=== PATIENT | female | born 1990 | race Caucasian/White ===

== ENCOUNTER 2022-03-14 18:11 | Emergency (ER) | payer OTHER ==
[2022-03-14 18:39] VITALS: RESP 18
[2022-03-14] MEDS ORDERED: SODIUM CHLORIDE 0.9% 1,000 ML IV STA (18:56)
[2022-03-14] MEDS ORDERED: KETOROLAC 15 MG/ML 1 ML VIAL IVP STA (18:56)
[2022-03-14] MEDS ORDERED: PANTOPRAZOLE 40 MG/10 ML VIAL IVP STA (18:56)
--- NOTE | 2022-03-14 18:59 | ED ---
General Adult HPI - General Chief complaint: Abdominal Pain Stated complaint: pain all over Time Seen by Provider: 03/14/22 18:50 Source: patient, RN notes reviewed, old records reviewed Mode of arrival: ambulatory Limitations: no limitations - History of Present Illness Initial comments: This is a well-appearing 31-year-old female that presents tearful complaining of abdominal pain that is dull in nature goes up into her chest and her neck. Patient states that started at 4:00 today when she was cleaning the car. She denies any nausea vomiting diarrhea or fevers. She states that she had a similar episode of abdominal pain and was specific to the right upper quadrant and her family member thought she might have problems with her gallbladder. She is not taking any medications on a daily basis and no medical history. She has a history of tubal ligation. -: hour(s) (3) Location: abdomen (generalized) Severity scale (1-10): 10 Quality: dull Consistency: intermittent Improves with: none Worsens with: none - Related Data Home Medications Medication Instructions Recorded Confirmed No Known Home Medications 03/14/22 03/14/22 Allergies Allergy/AdvReac Type Severity Reaction Status Date / Time No Known Allergies Allergy Verified 03/14/22 21:39 Review of Systems ROS Statement: Those systems with pertinent positive or pertinent negative responses have been documented in the HPI. ROS Other: All systems not noted in ROS Statement are negative. Past Medical History Past Medical History: No Reported History History of Any Multi-Drug Resistant Organisms: MRSA Date of last positivie culture/infection: 2009 MDRO Source:: scar Past Surgical History: Section Additional Past Surgical History / Comment(s): left fallopian tube removed 2009 Past Psychological History: No Psychological Hx Reported Smoking Status: Never smoker Past Alcohol Use History: Occasional Past Drug Use History: None Reported General Exam Limitations: no limitations General appearance: alert, in no apparent distress Head exam: Present: atraumatic, normocephalic Eye exam: Present: normal appearance. Absent: scleral icterus, conjunctival injection ENT exam: Present: mucous membranes moist Neck exam: Present: normal inspection. Absent: tenderness, meningismus Respiratory exam: Present: normal lung sounds bilaterally. Absent: respiratory distress, accessory muscle use Cardiovascular Exam: Present: regular rate GI/Abdominal exam: Present: soft. Absent: distended, tenderness, rigid Extremities exam: Present: normal inspection, normal capillary refill. Absent: pedal edema Back exam: Present: normal inspection. Absent: tenderness, CVA tenderness (R), CVA tenderness (L), rash noted Neurological exam: Present: alert, oriented X3, normal gait Psychiatric exam: Present: normal affect, normal mood Skin exam: Present: warm, dry, normal color. Absent: cyanosis, diaphoretic, petechiae, pallor Course Vital Signs 03/14/22 03/14/22 18:33 22:53 Temperature 98.3 F 97.6 F Pulse Rate 80 60 Respiratory 18 18 Rate Blood Pressure 128/82 123/92 O2 Sat by Pulse 100 99 Oximetry EKG Findings - EKG Results: EKG: sinus rhythm (Ventricular rate 54, VT interval 0.175, QRS 0.89, QTC 0.433) Medical Decision Making - Medical Decision Making No evidence of leukocytosis hemoglobin and hematocrit are stable. Electrolytes are unremarkable. Urinalysis shows no evidence of infection. CT of the abdomen with contrast shows no acute findings. No significant abnormalities of her gallbladder. Pancreas and spleen adrenals and kidneys are normal. Appendix is negative. On physical exam abdomen is soft and nontender. Lungs sounds are clear to auscultation. Vital signs are stable, patient has been afebrile. I do not have a cause for the patient's generalized body aches or abdominal pain. She was instructed to follow up with her primary care doctor or return to the emergency room with any new or concerning symptoms. - Lab Data Result diagrams: 03/14/22 19:00 03/14/22 19:00 Lab Results 03/14/22 03/14/22 03/14/22 Range/Units 19:00 19:00 19:00 WBC 9.5 (3.8-10.6) k/uL RBC 4.84 (3.80-5.40) m/uL Hgb 14.5 (11.4-16.0) gm/dL Hct 44.2 (34.0-46.0) % MCV 91.2 (80.0-100.0) fL MCH 29.9 (25.0-35.0) pg MCHC 32.8 (31.0-37.0) g/dL RDW 12.3 (11.5-15.5) % Plt Count 286 (150-450) k/uL MPV 7.6 Neutrophils % 70 % Lymphocytes % 20 % Monocytes % 5 % Eosinophils % 3 % Basophils % 1 % Neutrophils # 6.7 (1.3-7.7) k/uL Lymphocytes # 1.9 (1.0-4.8) k/uL Monocytes # 0.5 (0-1.0) k/uL Eosinophils # 0.3 (0-0.7) k/uL Basophils # 0.1 (0-0.2) k/uL Sodium 142 (137-145) mmol/L Potassium 4.2 (3.5-5.1) mmol/L Chloride 105 (98-107) mmol/L Carbon Dioxide 27 (22-30) mmol/L Anion Gap 10 mmol/L BUN 15 (7-17) mg/dL Creatinine 0.86 (0.52-1.04) mg/dL Est GFR (CKD-EPI)AfAm >90 (>60 ml/min/1.73 sqM) Est GFR (CKD-EPI)NonAf 90 (>60 ml/min/1.73 sqM) Glucose 104 H (74-99) mg/dL Plasma Lactic Acid [place] (0.7-2.0) mmol/L Calcium 9.8 (8.4-10.2) mg/dL Total Bilirubin 0.3 (0.2-1.3) mg/dL AST 62 H (14-36) U/L ALT 21 (4-34) U/L Alkaline Phosphatase 74 (38-126) U/L Troponin I (0.000-0.034) ng/mL Total Protein 8.1 (6.3-8.2) g/dL Albumin 4.8 (3.5-5.0) g/dL Amylase 72 (30-110) U/L Lipase 149 (23-300) U/L Urine Color Yellow Urine Appearance Clear (Clear) Urine pH 6.5 (5.0-8.0) Ur Specific [place] 1.020 (1.001-1.035) Urine Protein Negative (Negative) Urine Glucose (UA) Negative (Negative) Urine Ketones Negative (Negative) Urine Blood Small H (Negative) Urine Nitrite Negative (Negative) Urine Bilirubin Negative (Negative) Urine Urobilinogen <2.0 (<2.0) mg/dL Ur Leukocyte Esterase Negative (Negative) Urine RBC 1 (0-5) /hpf Urine WBC 3 (0-5) /hpf Ur Squamous Epith Cells 2 (0-4) /hpf Urine Mucus Rare H (None) /hpf 03/14/22 03/14/22 Range/Units 19:00 19:00 WBC (3.8-10.6) k/uL RBC (3.80-5.40) m/uL Hgb (11.4-16.0) gm/dL Hct (34.0-46.0) % MCV (80.0-100.0) fL MCH (25.0-35.0) pg MCHC (31.0-37.0) g/dL RDW (11.5-15.5) % Plt Count (150-450) k/uL MPV Neutrophils % % Lymphocytes % % Monocytes % % Eosinophils % % Basophils % % Neutrophils # (1.3-7.7) k/uL Lymphocytes # (1.0-4.8) k/uL Monocytes # (0-1.0) k/uL Eosinophils # (0-0.7) k/uL Basophils # (0-0.2) k/uL Sodium (137-145) mmol/L Potassium (3.5-5.1) mmol/L Chloride (98-107) mmol/L Carbon Dioxide (22-30) mmol/L Anion Gap mmol/L BUN (7-17) mg/dL Creatinine (0.52-1.04) mg/dL Est GFR (CKD-EPI)AfAm (>60 ml/min/1.73 sqM) Est GFR (CKD-EPI)NonAf (>60 ml/min/1.73 sqM) Glucose (74-99) mg/dL Plasma Lactic Acid [place] 0.7 (0.7-2.0) mmol/L Calcium (8.4-10.2) mg/dL Total Bilirubin (0.2-1.3) mg/dL AST (14-36) U/L ALT (4-34) U/L Alkaline Phosphatase (38-126) U/L Troponin I <0.012 (0.000-0.034) ng/mL Total Protein (6.3-8.2) g/dL Albumin (3.5-5.0) g/dL Amylase (30-110) U/L Lipase (23-300) U/L Urine Color Urine Appearance (Clear) Urine pH (5.0-8.0) Ur Specific [place] (1.001-1.035) Urine Protein (Negative) Urine Glucose (UA) (Negative) Urine Ketones (Negative) Urine Blood (Negative) Urine Nitrite (Negative) Urine Bilirubin (Negative) Urine Urobilinogen (<2.0) mg/dL Ur Leukocyte Esterase (Negative) Urine RBC (0-5) /hpf Urine WBC (0-5) /hpf Ur Squamous Epith Cells (0-4) /hpf Urine Mucus (None) /hpf Disposition Clinical Impression: Abdominal pain Disposition: HOME SELF-CARE Condition: Good Instructions (If sedation given, give patient instructions): Abdominal Pain (ED) Additional Instructions: We completed a workup for your symptoms of abdominal and chest pain today. Sometimes we do not always find the cause of your symptoms in one ER visit. The findings on your exam today, your blood work and CT scan are reassuring. At this time it is not 100% certain what is causing your symptoms but we feel you can be discharged from the emergency department. It is possible that your symptoms may worsen or you may get better. Please return to the emergency room if your symptoms get worse. Otherwise follow-up with primary care doctor within the next few days. Is patient prescribed a controlled substance at d/c from ED?: No Referrals: Eben Carlin DO [Primary Care Provider] - 1-2 days Time of Disposition: 22:12
[2022-03-14 19:18] LABS: Basophils # (A) 0.1 k/uL (0-0.2); Basophils % (A) 1 %; Eosinophils # (A) 0.3 k/uL (0-0.7); Eosinophils % (A) 3 %; HCT 44.2 % (34.0-46.0); HGB 14.5 gm/dL (11.4-16.0); Lymphocytes # (A) 1.9 k/uL (1.0-4.8); Lymphocytes % (A) 20 %; MCH 29.9 pg (25.0-35.0); MCHC 32.8 g/dL (31.0-37.0); MCV 91.2 fL (80.0-100.0); Mean Platelet Volume 7.6; Monocytes # (A) 0.5 k/uL (0-1.0); Monocytes % (A) 5 %; Neutrophils # (A) 6.7 k/uL (1.3-7.7); Neutrophils % (A) 70 %; Platelet Count 286 k/uL (150-450); RBC 4.84 m/uL (3.80-5.40); RDW 12.3 % (11.5-15.5); WBC 9.5 k/uL (3.8-10.6)
[2022-03-14 19:23] LABS: Appearance,Urine Clear (Clear); Bilirubin,Urine Negative (Negative); Blood,Urine Small (Negative); Color,Urine Yellow; Glucose,Urine (UA) Negative (Negative); Ketones,Urine Negative (Negative); Leukocyte Esterase,Urine Negative (Negative); Mucus,Urine Rare /hpf; Nitrite,Urine Negative (Negative); PH, Urine 6.5 (5.0-8.0); Protein,Urine Negative (Negative); RBC,Urine 1 /hpf (0-5); Squamous Epithelial Cell,Urine 2 /hpf (0-4); Urobilinogen,Urine <2.0 mg/dL (<2.0); WBC,Urine 3 /hpf (0-5)
[2022-03-14 19:34] LABS: ALT 21 U/L (4-34); AST 62 U/L (14-36); African American GFR (CKD) >90 (>60 ml/min/1.73 sqM); Albumin 4.8 g/dL (3.5-5.0); Alkaline Phosphatase 74 U/L (38-126); Amylase 72 U/L (30-110); Anion Gap 10 mmol/L; Blood Urea Nitrogen 15 mg/dL (7-17); Calcium 9.8 mg/dL (8.4-10.2); Carbon Dioxide 27 mmol/L (22-30); Chloride 105 mmol/L (98-107); Glucose 104 mg/dL (74-99); Lipase 149 U/L (23-300); Non-African American GFR(CKD) 90 (>60 ml/min/1.73 sqM); Potassium 4.2 mmol/L (3.5-5.1); Sodium 142 mmol/L (137-145); Total Bilirubin 0.3 mg/dL (0.2-1.3); Total Protein 8.1 g/dL (6.3-8.2)
--- NOTE | 2022-03-14 21:40 | CT ---
EXAMINATION TYPE: CT abdomen pelvis w con DATE OF EXAM: 03/14/2022 HISTORY: abd pain CT DLP: 1143.2 mGycm Automated Exposure Control for Dose Reduction was Utilized. CONTRAST: CT scan of the abdomen and pelvis is performed with IV Contrast, patient injected with 100m l mL of Isovue 300. COMPARISON: None FINDINGS: LUNG BASES: No significant abnormality is appreciated. LIVER/GB: No significant abnormality is appreciated. PANCREAS: No significant abnormality is seen. SPLEEN: No significant abnormality is seen. ADRENALS: No significant abnormality is seen. KIDNEYS: No significant abnormality is seen. BOWEL: No significant abnormality is seen. Appendix is negative. Colonic stool volume mildly promine nt within the ascending colon and transverse colon, but minimal volume from the splenic flexure and s igmoid. UTERUS/ADNEXA: No acute process. Incidental 1.9 cm fat density spherical focus left ovary, consistent with consistent with incidental dermoid. LYMPH NODES: No greater than 1cm abdominal or pelvic lymph nodes are appreciated. OSSEOUS STRUCTURES: No significant abnormality is seen. OTHER: No acute vascular findings. IMPRESSION: NO SIGNIFICANT ACUTE FINDING IS SEEN TO ACCOUNT FOR PATIENT'S CLINICAL SYMPTOMS. Incidental left ovarian fat density noted.
[2022-03-14 22:56] VITALS: BP 123/92; PULSE 60; TEMP 97.6
== END 2022-03-14 22:59 | disposition home or self-care (01) ==
LOC: EC 18:11
DX: R10.84 Generalized abdominal pain (principal)
CPT/HCPCS: 36415; 93005; 80053; 82150; 83605; 83690; 84484; 85025; 81001; 74177; 99284; 96374; 96375; 96361; J1885; C9113; Q9967

== ENCOUNTER 2022-03-21 12:00 | Inpatient (IN) | payer OTHER ==
[2022-03-21 13:29] LABS: Appearance,Urine Clear (Clear); Bilirubin,Urine Negative (Negative); Blood,Urine Negative (Negative); Color,Urine Light Yellow; Glucose,Urine (UA) Negative (Negative); Ketones,Urine Negative (Negative); Leukocyte Esterase,Urine Negative (Negative); Nitrite,Urine Negative (Negative); Protein,Urine Negative (Negative); Specific Gravity,Urine 1.003 (1.001-1.035); Urobilinogen,Urine <2.0 mg/dL (<2.0)
[2022-03-21 13:30] LABS: Basophils % (A) 1 %; Eosinophils # (A) 0.1 k/uL (0-0.7); Eosinophils % (A) 1 %; HGB 15.3 gm/dL (11.4-16.0); Lymphocytes # (A) 1.5 k/uL (1.0-4.8); Lymphocytes % (A) 17 %; MCH 30.7 pg (25.0-35.0); MCHC 33.1 g/dL (31.0-37.0); MCV 92.7 fL (80.0-100.0); Mean Platelet Volume 7.6; Monocytes # (A) 0.6 k/uL (0-1.0); Monocytes % (A) 7 %; Neutrophils # (A) 6.5 k/uL (1.3-7.7); Neutrophils % (A) 74 %; Platelet Count 272 k/uL (150-450); RBC 4.97 m/uL (3.80-5.40); RDW 12.3 % (11.5-15.5); WBC 8.7 k/uL (3.8-10.6)
[2022-03-21 13:50] LABS: ALT 86 U/L (4-34); AST 245 U/L (14-36); African American GFR (CKD) >90 (>60 ml/min/1.73 sqM); Albumin 4.8 g/dL (3.5-5.0); Alkaline Phosphatase 132 U/L (38-126); Amylase 58 U/L (30-110); Anion Gap 9 mmol/L; Blood Urea Nitrogen 14 mg/dL (7-17); Calcium 9.5 mg/dL (8.4-10.2); Carbon Dioxide 24 mmol/L (22-30); Chloride 106 mmol/L (98-107); Glucose 104 mg/dL (74-99); Lipase 120 U/L (23-300); Non-African American GFR(CKD) >90 (>60 ml/min/1.73 sqM); Potassium 4.3 mmol/L (3.5-5.1); Sodium 139 mmol/L (137-145); Total Protein 8.2 g/dL (6.3-8.2)
--- NOTE | 2022-03-21 14:45 | ED ---
General Adult HPI - General Source: patient, RN notes reviewed, old records reviewed Mode of arrival: ambulatory Limitations: no limitations <Giorgio Hill - Last Filed: 03/21/22 15:02> <Uri Franco - Last Filed: 03/21/22 16:53> - General Chief complaint: Abdominal Pain Stated complaint: pain - abd Time Seen by Provider: 03/21/22 14:36 - History of Present Illness Initial comments: Patient is a pleasant 31-year-old female presenting to the emergency Department with abdominal discomfort. Onset of symptoms was around 11:00. Symptoms have improved however not resolved. Patient was jerking coffee prior to onset. Patient did have similar symptoms a week ago, unclear why and was in the emergency department at that time. No vomiting. Patient does have some mild nausea. Discomfort is mostly epigastric. No fever. No constipation or diarrhea. (Giorgio Hill) - Related Data Previous Rx's Medication Instructions Recorded HYDROcodone/APAP 5-325MG [[place]ugene 1 tab PO Q6HR PRN 3 Days #12 tab 03/21/22 5-325] Ondansetron Odt [Zofran Odt] 4 mg PO Q8HR PRN #12 tab 03/21/22 Allergies Allergy/AdvReac Type Severity Reaction Status Date / Time No Known Allergies Allergy Verified 03/21/22 16:04 Review of Systems ROS Other: All systems not noted in ROS Statement are negative. Constitutional: Denies: fever Eyes: Denies: eye pain ENT: Denies: ear pain Respiratory: Denies: cough Cardiovascular: Denies: chest pain Endocrine: Denies: fatigue Gastrointestinal: Reports: as per HPI, abdominal pain Genitourinary: Denies: dysuria Musculoskeletal: Denies: arthralgia Skin: Denies: rash Neurological: Denies: weakness <Giorgio Hill - Last Filed: 03/21/22 15:02> ROS Other: All systems not noted in ROS Statement are negative. <Uri Franco - Last Filed: 03/21/22 16:53> ROS Statement: Those systems with pertinent positive or pertinent negative responses have been documented in the HPI. Past Medical History Past Medical History: No Reported History History of Any Multi-Drug Resistant Organisms: MRSA Date of last positivie culture/infection: 2009 MDRO Source:: scar Past Surgical History: Section, Tubal Ligation Additional Past Surgical History / Comment(s): left fallopian tube removed 2009 Past Psychological History: No Psychological Hx Reported Smoking Status: Never smoker Past Alcohol Use History: Occasional Past Drug Use History: None Reported <Giorgio Hill - Last Filed: 03/21/22 15:02> General Exam Limitations: no limitations General appearance: alert, in no apparent distress Head exam: Present: normocephalic Eye exam: Present: normal appearance ENT exam: Present: normal oropharynx Neck exam: Present: normal inspection Respiratory exam: Present: normal lung sounds bilaterally Cardiovascular Exam: Present: regular rate, normal rhythm Expanded Peripheral pulses: 2+: Posterior Tibialis (R), Posterior Tibialis (L) GI/Abdominal exam: Present: soft, tenderness (Mild to moderate epigastric tenderness to palpation), normal bowel sounds. Absent: distended, guarding, rebound, rigid, pulsatile mass Extremities exam: Present: normal inspection Back exam: Present: normal inspection Neurological exam: Present: alert Psychiatric exam: Present: normal affect, normal mood Skin exam: Present: normal color <Giorgio Hill - Last Filed: 03/21/22 15:02> Course Vital Signs 03/21/22 03/21/22 12:45 16:03 Temperature 98.0 F Pulse Rate 91 68 Respiratory 18 16 Rate Blood Pressure 133/81 129/82 O2 Sat by Pulse 100 99 Oximetry Medical Decision Making - Lab Data Result diagrams: 03/21/22 12:50 03/21/22 12:50 <Giorgio Hill - Last Filed: 03/21/22 15:02> - Lab Data Result diagrams: 03/21/22 12:50 03/21/22 12:50 <Uri Franco - Last Filed: 03/21/22 16:53> - Medical Decision Making Patient care is signed out to me by previous shift physician, Dr. Hill. Briefly, patient 31-year-old female presents to the emergency department for abdominal pain. Plan at sign out was to follow-up with pending ultrasound imaging. Sign out patient had her labs resulted. CBC is unremarkable. Metabolic panel is within acceptable limits. There was however mild elevation in liver enzymes. No leukocytosis. Hemoglobin stable. Vital signs are within acceptable limits. Patient evaluated at bedside at 4:30 PM. Patient states she does feel symptomatic. She would like analgesics. Patient agreeable for Toradol. Ultrasound result that showing positive sonographic Alberto sign, mild thickened gallbladder with extensive shadowy calculi filling the lumen. Ultrasound suggests clinical correlation for acute or chronic cholecystitis. Patient denies any constitutional symptoms. She continues to be afebrile. Clinical presentation suggestive of symptomatic cholelithiasis. She does not have leukocytosis or infectious symptoms to suggest acute cholecystitis. Patient reevaluated again at 4:45 PM found to be in stable medical condition. Ultrasound was resulted showing positive likely shadow sign suggesting cholelithiasis. Her symptomatology, ultrasound and blood work suggest choledocholithiasis. Patient denies any constitutional symptoms. She says her symptoms have been ongoing for several months intermittently. Case was discussed with on-call general surgeon, Dr. De La Paz who recommended patient be admitted for ongoing symptoms. He requests MRCP be ordered and and labs. Patient is agreeable to plan. (Uri Franco) - Lab Data Lab Results 03/21/22 03/21/22 03/21/22 Range/Units 12:50 12:50 12:50 WBC 8.7 (3.8-10.6) k/uL RBC 4.97 (3.80-5.40) m/uL Hgb 15.3 (11.4-16.0) gm/dL Hct 46.0 (34.0-46.0) % MCV 92.7 (80.0-100.0) fL MCH 30.7 (25.0-35.0) pg MCHC 33.1 (31.0-37.0) g/dL RDW 12.3 (11.5-15.5) % Plt Count 272 (150-450) k/uL MPV 7.6 Neutrophils % 74 % Lymphocytes % 17 % Monocytes % 7 % Eosinophils % 1 % Basophils % 1 % Neutrophils # 6.5 (1.3-7.7) k/uL Lymphocytes # 1.5 (1.0-4.8) k/uL Monocytes # 0.6 (0-1.0) k/uL Eosinophils # 0.1 (0-0.7) k/uL Basophils # 0.0 (0-0.2) k/uL Sodium 139 (137-145) mmol/L Potassium 4.3 (3.5-5.1) mmol/L Chloride 106 (98-107) mmol/L Carbon Dioxide 24 (22-30) mmol/L Anion Gap 9 mmol/L BUN 14 (7-17) mg/dL Creatinine 0.82 (0.52-1.04) mg/dL Est GFR (CKD-EPI)AfAm >90 (>60 ml/min/1.73 sqM) Est GFR (CKD-EPI)NonAf >90 (>60 ml/min/1.73 sqM) Glucose 104 H (74-99) mg/dL Calcium 9.5 (8.4-10.2) mg/dL Total Bilirubin 1.0 (0.2-1.3) mg/dL AST 245 H (14-36) U/L ALT 86 H (4-34) U/L Alkaline Phosphatase 132 H (38-126) U/L Total Protein 8.2 (6.3-8.2) g/dL Albumin 4.8 (3.5-5.0) g/dL Amylase 58 (30-110) U/L Lipase 120 (23-300) U/L Urine Color Light Yellow Urine Appearance Clear (Clear) Urine pH 7.0 (5.0-8.0) Ur Specific [place] 1.003 (1.001-1.035) Urine Protein Negative (Negative) Urine Glucose (UA) Negative (Negative) Urine Ketones Negative (Negative) Urine Blood Negative (Negative) Urine Nitrite Negative (Negative) Urine Bilirubin Negative (Negative) Urine Urobilinogen <2.0 (<2.0) mg/dL Ur Leukocyte Esterase Negative (Negative) Disposition <Giorgio Hill - Last Filed: 03/21/22 15:02> Is patient prescribed a controlled substance at d/c from ED?: Yes If prescribed controlled substance>3 days was MAPS reviewed?: Prescribed <3 Days Decision Time: 16:53 <Uri Franco - Last Filed: 03/21/22 16:53> Clinical Impression: Choledocholithiasis Disposition: ADMITTED IP TO THIS HOSP Condition: Fair Instructions (If sedation given, give patient instructions): Gallstones (ED), Biliary Colic (ED) Prescriptions: HYDROcodone/APAP 5-325MG [[place] 5-325] 1 tab PO Q6HR PRN 3 Days #12 tab PRN Reason: Severe Pain Ondansetron Odt [Zofran Odt] 4 mg PO Q8HR PRN #12 tab PRN Reason: Nausea
--- NOTE | 2022-03-21 15:58 | US ---
EXAMINATION TYPE: US gallbladder DATE OF EXAM: 03/21/2022 COMPARISON: NONE CLINICAL HISTORY: 31-year-old female pain all over within the abdomen TECHNIQUE: Multiple sonographic images of the right upper quadrant are obtained. FINDINGS: EXAM MEASUREMENTS: Liver Length: 17.5 cm Gallbladder Wall: 0.4 cm CBD: 7.6 mm Right Kidney: 11.6 x 5.3 x 3.6 cm PATTERN CHART WRITER NOTES:bowel gas limits exam Pancreas: A portion of the pancreatic neck and body is seen. Head and tail are largely obscured by b owel gas shadowing. Liver: Borderline sized. Overall homogeneous echotexture. Limited due to intercostal imaging. Gallbladder: +AMMON sign, rubalcava slightly thickened Evidence for sonographic Alberto's sign: YES CBD: Borderline to mildly dilated. Right Kidney: wnl IMPRESSION: 1. Positive sonographic Alberto sign. Mildly thickened gallbladder wall with extensive shadowing calcu li filling the lumen. Further correlation for acute or chronic cholecystitis recommended. 2. In addition, the bile duct is borderline to mildly dilated. Correlate with alkaline phosphatase an d bilirubin levels as biliary obstruction such as from choledocholithiasis is not excluded.
[2022-03-21] MEDS ORDERED: MAG HYDROX/AL HYDROX/SIMETH 30 ML, HYOSCYAMINE ELIXIR 10 ML, LIDOCAINE VISCOUS 2% 10 ML PO STA ×3 (16:02)
[2022-03-21] MEDS ORDERED: KETOROLAC 15 MG/ML 1 ML VIAL IVP STA (16:03)
[2022-03-21] MEDS ORDERED: KETOROLAC 15 MG/ML 1 ML VIAL IVP PRN (16:53)
[2022-03-21] MEDS ORDERED: NALOXONE 0.4 MG/ML 1 ML VIAL IV PRN (16:53)
[2022-03-21] MEDS ORDERED: ACETAMINOPHEN TAB 325 MG TAB PO PRN (16:53)
[2022-03-21] MEDS: SODIUM CHLORIDE 0.9% 1,000 ML IV SCH (21:30)
[2022-03-22] MEDS: SODIUM CHLORIDE 0.9% 1,000 ML IV SCH ×3 (05:06→19:11)
[2022-03-22 05:20] LABS: Basophils # (A) 0.1 k/uL (0-0.2); Basophils % (A) 1 %; Eosinophils # (A) 0.3 k/uL (0-0.7); Eosinophils % (A) 6 %; Lymphocytes # (A) 1.9 k/uL (1.0-4.8); Lymphocytes % (A) 33 %; MCHC 32.6 g/dL (31.0-37.0); Mean Platelet Volume 7.7; Monocytes # (A) 0.4 k/uL (0-1.0); Monocytes % (A) 6 %; Neutrophils % (A) 52 %; Platelet Count 227 k/uL (150-450); RBC 4.35 m/uL (3.80-5.40); RDW 12.4 % (11.5-15.5); WBC 5.8 k/uL (3.8-10.6)
[2022-03-22 05:23] LABS: ALT 68 U/L (4-34); AST 77 U/L (14-36); African American GFR (CKD) >90 (>60 ml/min/1.73 sqM); Albumin/Globulin Ratio 1.4; Alkaline Phosphatase 91 U/L (38-126); Anion Gap 5 mmol/L; Blood Urea Nitrogen 12 mg/dL (7-17); Calcium 8.8 mg/dL (8.4-10.2); Carbon Dioxide 25 mmol/L (22-30); Chloride 110 mmol/L (98-107); Globulin 2.9 g/dL; Glucose 92 mg/dL (74-99); Non-African American GFR(CKD) >90 (>60 ml/min/1.73 sqM); Potassium 4.1 mmol/L (3.5-5.1); Sodium 140 mmol/L (137-145); Total Bilirubin 0.7 mg/dL (0.2-1.3); Total Protein 6.9 g/dL (6.3-8.2)
[2022-03-22 07:47] VITALS: RESP 15
--- NOTE | 2022-03-22 09:09 | P.GSHP ---
History of Present Illness H&P Date: 03/22/22 CHIEF COMPLAINT: Abdominal pain HISTORY OF PRESENT ILLNESS: This is a 31-year-old female presented to the hospital for complaints of right upper quadrant abdominal pain with nausea. Pain has been intermittent in the last 2 weeks. She did require a visit to the ER last week for abdominal pain. CAT scan at that time showed no acute findings. Patient presents back to the ER yesterday with increased pain in the right upper quadrant. Pain started after drinking coffee. Patient does report that she does have increased abdominal pain after eating. She noticed increasing pain after eating salmon and steak. She denies any fever chills or sweats. Gallbladder ultrasound demonstrates positive Alberto sign. Mildly thickened gallbladder wall with extensive shadowing calculi filling the lumen. Further correlation for acute or chronic cholecystitis recommended. Bile duct is borderline to mildly dilated. Concerns for possible choledocholithiasis. MRCP has been ordered. Patient did have elevated LFTs and alk phos on admission. Results today have shown trending down of the liver enzymes. Patient's past surgical history includes 3 C-sections and tubal ligation. She denies any cardiac history. PAST MEDICAL HISTORY: See list. PAST SURGICAL HISTORY: See list. MEDICATIONS: See list. ALLERGIES: See list. SOCIAL HISTORY: No illicit drug use. Occasional alcohol use. REVIEW OF SYSTEMS: CONSTITUTIONAL: Denies fever or chills. HEENT: Denies blurred vision, vision changes, or eye pain. Denies hemoptysis CARDIOVASCULAR: Denies chest pain or pressure. RESPIRATORY: No shortness of breath. GASTROINTESTINAL: See HPI for pertinent findings HEMATOLOGIC: Denies bleeding disorders. GENITOURINARY: Denies any blood in urine or increased urinary frequency. SKIN: Denies pruitis. Denies rash. PHYSICAL EXAM: VITAL SIGNS: Reviewed GENERAL: Well-developed in no acute distress. HEENT: No sclera icterus. Extraocular movements grossly intact. Moist buccal mucosa. Head is atraumatic, normocephalic. No nasal drainage. ABDOMEN: Soft. Nondistended. Tenderness with palpation of the right upper quadrant NEUROLOGIC: Alert and oriented. Cranial nerves II through XII grossly intact. LABORATORY DATA: WBC is 5.8 Hgb is 13 platelets 227 Sodium is 140 potassium is 4.1 creatinine 0.80 Total bili 0.7 AST to 45,077 ALT 86 down to 68 alk phos 132 down to 91 Lipase 120 Urinalysis negative IMAGING: Gallbladder ultrasound as stated above ASSESSMENT: 1. Acute cholecystitis 2. Possible choledocholithiasis PLAN: -Awaiting MRCP to be done today -Patient is tentative scheduled for laparoscopic cholecystectomy today with Dr. De La Paz -Keep patient nothing by mouth -Start IV antibiotics -Continue IV fluids -Continue pain medication and antiemetics as needed Physician Computer Systems Information Director note has been reviewed by physician. Signing provider agrees with the documented findings, assessment, and plan of care. I have personally seen and examined the patient, reviewed the COMPUTER NETWORK SPECIALIST /PAs history, exam and MDM and agree with the assessment and plan as written. Based on total visit time, I have performed more than 50% of the visit. As above: Patient was seen earlier this morning. History suggestive of acute cholecystitis. Liver enzymes were elevated. Repeat liver enzymes this morning are improved. MRCP was ordered in the ER last night after we noted her initial presenting lab work. MRCP surprisingly still shows choledocholithiasis. We do not have GI coverage at this time for the next 9 days. We'll work on transfer to outside facility where GI coverage is available. Past Medical History Past Medical History: No Reported History History of Any Multi-Drug Resistant Organisms: MRSA Date of last positivie culture/infection: 2009 MDRO Source:: scar Past Surgical History: Section, Tubal Ligation Additional Past Surgical History / Comment(s): left fallopian tube removed 2009 Past Anesthesia/Blood Transfusion Reactions: No Reported Reaction Past Psychological History: No Psychological Hx Reported Smoking Status: Former smoker Past Alcohol Use History: Occasional Past Drug Use History: None Reported Medications and Allergies Home Medications Medication Instructions Recorded Confirmed Type HYDROcodone/APAP 5-325MG [[place] 1 tab PO Q6HR PRN 3 Days #12 tab 03/21/22 Rx 5-325] Ondansetron Odt [Zofran Odt] 4 mg PO Q8HR PRN #12 tab 03/21/22 Rx Allergies Allergy/AdvReac Type Severity Reaction Status Date / Time No Known Allergies Allergy Verified 03/21/22 16:04 Surgical - Exam Vital Signs Temp Pulse Resp BP Pulse Ox 98.0 F 91 18 133/81 100 03/21/22 12:45 03/21/22 12:45 03/21/22 12:45 03/21/22 12:45 03/21/22 12:45 Results - Labs 03/22/22 04:35 03/22/22 04:31 Abnormal Lab Results - Last 24 Hours (Table) 03/21/22 03/22/22 Range/Units 12:50 04:31 Chloride 110 H (98-107) mmol/L Glucose 104 H (74-99) mg/dL AST 245 H 77 H (14-36) U/L ALT 86 H 68 H (4-34) U/L Alkaline Phosphatase 132 H (38-126) U/L Diabetes panel 03/21/22 03/22/22 Range/Units 12:50 04:31 Sodium 139 140 (137-145) mmol/L Potassium 4.3 4.1 (3.5-5.1) mmol/L Chloride 106 110 H (98-107) mmol/L Carbon Dioxide 24 25 (22-30) mmol/L BUN 14 12 (7-17) mg/dL Creatinine 0.82 0.80 (0.52-1.04) mg/dL Glucose 104 H 92 (74-99) mg/dL Calcium 9.5 8.8 (8.4-10.2) mg/dL AST 245 H 77 H (14-36) U/L ALT 86 H 68 H (4-34) U/L Alkaline Phosphatase 132 H 91 (38-126) U/L Total Protein 8.2 6.9 (6.3-8.2) g/dL Albumin 4.8 4.0 (3.5-5.0) g/dL Calcium panel 03/21/22 03/22/22 Range/Units 12:50 04:31 Calcium 9.5 8.8 (8.4-10.2) mg/dL Albumin 4.8 4.0 (3.5-5.0) g/dL Pituitary panel 03/21/22 03/22/22 Range/Units 12:50 04:31 Sodium 139 140 (137-145) mmol/L Potassium 4.3 4.1 (3.5-5.1) mmol/L Chloride 106 110 H (98-107) mmol/L Carbon Dioxide 24 25 (22-30) mmol/L BUN 14 12 (7-17) mg/dL Creatinine 0.82 0.80 (0.52-1.04) mg/dL Glucose 104 H 92 (74-99) mg/dL Calcium 9.5 8.8 (8.4-10.2) mg/dL Adrenal panel 03/21/22 03/22/22 Range/Units 12:50 04:31 Sodium 139 140 (137-145) mmol/L Potassium 4.3 4.1 (3.5-5.1) mmol/L Chloride 106 110 H (98-107) mmol/L Carbon Dioxide 24 25 (22-30) mmol/L BUN 14 12 (7-17) mg/dL Creatinine 0.82 0.80 (0.52-1.04) mg/dL Glucose 104 H 92 (74-99) mg/dL Calcium 9.5 8.8 (8.4-10.2) mg/dL Total Bilirubin 1.0 0.7 (0.2-1.3) mg/dL AST 245 H 77 H (14-36) U/L ALT 86 H 68 H (4-34) U/L Alkaline Phosphatase 132 H 91 (38-126) U/L Total Protein 8.2 6.9 (6.3-8.2) g/dL Albumin 4.8 4.0 (3.5-5.0) g/dL
[2022-03-22] MEDS: PIPERACILLIN-TAZOBACTAM 3.375 GM in SODIUM CHLORIDE 0.9% 100 ML IVPB SCH ×2 (09:12→16:35)
--- NOTE | 2022-03-22 11:04 | MR ---
MRCP HISTORY: Choledocholithiasis, abdominal pain Multiplanar multisequence imaging obtained through the biliary system with three-dimensional reconstr uctions performed of the biliary system on an alternate workstation and reviewed. Correlation to CT scan 03/14/2022, ultrasound gallbladder 03/21/2022 Multiple calculi are present within the common bile duct, coronal image #19 series 301, coronal image 18 series 301. Mild dilation of the common bile duct, no intrahepatic biliary ductal dilatation. Mul tiple gallstones are present within the gallbladder. Suspect the cystic duct joins the common bile du ct distally, cystic duct stones also noted. No gallbladder wall thickening to suggest cholecystitis. The liver shows a T2 intense, T1 isointense focus along the level of the falciform ligament anteriorl y which is indeterminate, not evaluated on ultrasound and measures 2 cm in transverse dimension by 2. 6 cm in cephalad to caudal dimension, hemangioma protocol may be of benefit. The adrenal glands, kidneys, pancreas, spleen are within normal limits. No evident bowel obstruction. Aorta shows normal caliber. No retroperitoneal adenopathy. Bone marrow signal maintained. No evident effusion at the lung bases. IMPRESSION: Cholelithiasis, choledocholithiasis, anatomy of the cystic duct as described. Indetermina te lesion within the left lobe of the liver
--- NOTE | 2022-03-22 14:41 | P.DS ---
Providers Date of admission: 03/22/22 13:46 Expected date of discharge: 03/22/22 Attending physician: Perry De La Paz Primary care physician: [facility] Hospital Course: Discharge diagnosis 1. Acute cholecystitis 2. Choledocholithiasis Hospital course his is a 31-year-old female presented to the hospital for complaints of right upper quadrant abdominal pain with nausea. Pain has been intermittent in the last 2 weeks. She did require a visit to the ER last week for abdominal pain. CAT scan at that time showed no acute findings. Patient presents back to the ER yesterday with increased pain in the right upper quadrant. Pain started after drinking coffee. Patient does report that she does have increased abdominal pain after eating. She noticed increasing pain after eating salmon and steak. Gallbladder ultrasound demonstrates positive Alberto sign. Mildly thickened gallbladder wall with extensive shadowing calculi filling the lumen. Further correlation for acute or chronic cholecystitis recommended. Bile duct is borderline to mildly dilated. Concerns for possible choledocholithiasis. Patient did have elevated LFTs and alk phos. MRCP was ordered for further evaluation of choledocholithiasis. MRCP results did show cholelithiasis, choledocholithiasis indeterminate lesion within the left lobe of the liver. We do not have GI coverage to do the ERCP for choledocholithiasis. Therefore, patient will be transferred to a tertiary care facility where GI coverage is available. LFTs are trending downwards and alk phos has normalized. Patient is stable for discharge. Physician Marketing Project Lead note has been reviewed by physician. Signing provider agrees with the documented findings, assessment, and plan of care. Patient Condition at Discharge: Stable Plan - Discharge Summary New Discharge Prescriptions: New HYDROcodone/APAP 5-325MG [[place] 5-325] 1 tab PO Q6HR PRN 3 Days #12 tab PRN Reason: Severe Pain Ondansetron Odt [Zofran Odt] 4 mg PO Q8HR PRN #12 tab PRN Reason: Nausea Discharge Medication List HYDROcodone/APAP 5-325MG [[place] 5-325] 1 tab PO Q6HR PRN 3 Days #12 tab 03/21/22 [Rx] Ondansetron Odt [Zofran Odt] 4 mg PO Q8HR PRN #12 tab 03/21/22 [Rx] Patient Instructions/Handouts: Biliary Colic (ED), Gallstones (ED)
[2022-03-22 14:54] VITALS: BP 104/70; PULSE 72; TEMP 98.3
== END 2022-03-22 20:49 | disposition other institution (70) | DRG 446 ==
LOC: EC 12:00 → 6NMEDSUR 16:53 → OBSVTOIN 03-22 13:46
PROVIDERS: ADMIT Surgery; ATTEND Surgery
DX: K80.62 Calculus of gallbladder and bile duct with acute cholecystitis without obstruction (principal); R74.01 Elevation of levels of liver transaminase levels; K76.89 Other specified diseases of liver; Z87.891 Personal history of nicotine dependence; Z98.51 Tubal ligation status; Z86.14 Personal history of Methicillin resistant Staphylococcus aureus infection
CPT/HCPCS: 36415; 74181; 76705; 80053; 81003; 82150; 83690; 84703; 85025; 87635; 96374; 99285

== ENCOUNTER 2024-01-31 20:57 | Emergency (ER) | payer OTHER ==
--- NOTE | 2024-01-31 22:41 | ED ---
ENT HPI - General Source: patient, RN notes reviewed Mode of arrival: ambulatory Limitations: no limitations <Jackie Varela - Last Filed: 01/31/24 22:39> <Hailey Constantino - Last Filed: 02/03/24 16:55> - General Chief complaint: Dental/Oral Stated complaint: Post op tooth pain, facial swelling Time Seen by Provider: 01/31/24 22:39 - History of Present Illness Initial comments: Quick [id number] female presenting with left-sided facial swelling x 2 days. She had a root canal performed 4 days ago. She was seen in urgent care yesterday and was placed on antibiotics but she reports the pain and swelling is worsening. She reports the swelling is extending into her lips, cheeks, and toward her left eye. She admits fevers, chills. (Jackie Varela) 33-year-old female presents to the emergency department for evaluation of left- sided facial swelling. Patient states that this has been going on for 3 days. She does report that she recently had a root canal done on Friday. She notes that she noticed pain to tooth with swelling of the upper lip, cheek. Patient was placed on Augmentin by urgent care 2 days ago. She states that she has taken 4 doses of this thus far. She states that she seems to be getting worse rather than better. She does admit to chills and cold sweats. (Hailey Constantino) - Related Data Previous Rx's Medication Instructions Recorded HYDROcodone/APAP 5-325MG [[place] 1 tab PO Q6HR PRN 3 Days #12 tab 03/21/22 5-325] Ondansetron Odt [Zofran Odt] 4 mg PO Q8HR PRN #12 tab 03/21/22 clindamycin HCL 300 mg PO QID #40 cap 02/01/24 Allergies Allergy/AdvReac Type Severity Reaction Status Date / Time No Known Allergies Allergy Verified 01/31/24 22:07 Review of Systems ROS Other: All systems not noted in ROS Statement are negative. <Jackie Varela - Last Filed: 01/31/24 22:39> ROS Other: All systems not noted in ROS Statement are negative. <Hailey Constantino - Last Filed: 02/03/24 16:55> ROS Statement: Those systems with pertinent positive or pertinent negative responses have been documented in the HPI. Past Medical History Past Medical History: GERD/Reflux History of Any Multi-Drug Resistant Organisms: MRSA Date of last positivie culture/infection: 2009 MDRO Source:: scar Past Surgical History: Section, Cholecystectomy, Tubal Ligation Additional Past Surgical History / Comment(s): left fallopian tube removed 2009 Past Anesthesia/Blood Transfusion Reactions: No Reported Reaction Past Psychological History: No Psychological Hx Reported Smoking Status: Former smoker Past Alcohol Use History: Rare Past Drug Use History: None Reported <AveryJackie - Last Filed: 01/31/24 22:39> General Exam Limitations: no limitations <Tati Varelana - Last Filed: 01/31/24 22:39> Limitations: no limitations General appearance: alert, in no apparent distress Head exam: Present: atraumatic, normocephalic, normal inspection Eye exam: Present: normal appearance, PERRL, EOMI. Absent: scleral icterus, conjunctival injection, periorbital swelling ENT exam: Present: normal oropharynx, mucous membranes moist, other (swelling to left upper lip and cheek). Absent: normal exam Neck exam: Present: normal inspection. Absent: tenderness, meningismus, lymphadenopathy Respiratory exam: Present: normal lung sounds bilaterally. Absent: respiratory distress, wheezes, rales, rhonchi, stridor Cardiovascular Exam: Present: normal rhythm, tachycardia, normal heart sounds. Absent: systolic murmur, diastolic murmur, rubs, gallop, clicks Extremities exam: Present: normal inspection, full ROM, normal capillary refill. Absent: tenderness, pedal edema, joint swelling, calf tenderness Neurological exam: Present: alert, oriented X3 Psychiatric exam: Present: normal affect, normal mood Skin exam: Present: warm, dry, intact, normal color. Absent: rash <Hailey Constantino - Last Filed: 02/03/24 16:55> - General Exam Comments Initial Comments: Visual Physical Exam Vital signs reviewed General: Well-appearing, nontoxic, no acute distress. Head: Normocephalic, atraumatic Eyes: PERRLA, EOMI ENT: Airway patent Chest: Nonlabored breathing Skin: No visual rash, normal skin tone Neuro: Alert and oriented 3 Musculoskeletal: No gross abnormalities (Jackie Varela) Course Vital Signs 01/31/24 02/01/24 02/01/24 22:07 02:33 05:26 Temperature 100.0 F H 101.9 F H 98.2 F Pulse Rate 105 H 84 72 Respiratory 16 15 15 Rate Blood Pressure 119/76 120/79 93/61 O2 Sat by Pulse 99 100 100 Oximetry Medical Decision Making <Jackie Varela - Last Filed: 01/31/24 22:39> - Lab Data Result diagrams: 01/31/24 23:16 02/01/24 01:54 <Hailey Constantino - Last Filed: 02/03/24 16:55> - Medical Decision Making I completed the quick note portion of this chart signed Jackie Varela PA-C (Jackie Varela) Was pt. sent in by a medical professional or institution (KRISTINA Harding, SQL SERVER ARCHITECT, urgent care, hospital, or fdc...) When possible be specific @ -No Did you speak to anyone other than the patient for history (EMS, parent, family, police, friend...)? What history was obtained from this source @ -No Did you review nursing and triage notes (agree or disagree)? Why? @ -I reviewed and agree with nursing and triage notes Were old charts reviewed (outside hosp., previous admission, EMS record, old EKG, old radiological studies, urgent care reports/EKG's, fdc records)? Report findings @ -No old charts were reviewed Differential Diagnosis (chest pain, altered mental status, abdominal pain women, abdominal pain men, vaginal bleeding, weakness, fever, dyspnea, syncope, headache, dizziness, GI bleed, back pain, seizure, CVA, palpatations, mental health, musculoskeletal)? @ -Differential Fever: Pneumonia, viral URI, endocarditis, myocarditis, pericarditis, otitis, sinusitis, peritonsillar Abscess, retropharyngeal Abscess, epiglottitis, peritonitis, appendicitis, Caridad cystitis, diverticulitis, hepatitis, colitis, UTI, PID, TOA, pyelonephritis, prostatitis, epididymitis, meningitis, encephalitis, pulmonary embolism, CVA, thyroid storm, pancreatitis, adrenal crisis, cavernous sinus thrombosis, this is not meant to be an all-inclusive list. EKG interpreted by me (3pts min.). @ -None X-rays interpreted by me (1pt min.). @ -None done CT interpreted by me (1pt min.). @ -None done U/S interpreted by me (1pt. min.). @ -None done What testing was considered but not performed or refused? (CT, X-rays, U/S, labs)? Why? @ -None What meds were considered but not given or refused? Why? @ -None Did you discuss the management of the patient with other professionals (professionals i.e. DrNella, PA, SQL SERVER ARCHITECT, lab, RT, psych nurse, social scientist, toe closing machine tender, teacher, immigration officer, lead case manager)? Give summary @ -No Was smoking cessation discussed for >3mins.? @ -No Was critical care preformed (if so, how long)? @ -No Were there social determinants of health that impacted care today? How? (Homelessness, low income, unemployed, alcoholism, drug addiction, transportation, low edu. Level, literacy, decrease access to med. care, long-term, rehab)? @ -No Was there de-escalation of care discussed even if they declined (Discuss DNR or withdrawal of care, Hospice)? DNR status @ -No What co-morbidities impacted this encounter? (DM, HTN, Smoking, COPD, CAD, Cancer, CVA, ARF, Chemo, Hep., AIDS, mental health diagnosis, sleep apnea, morbid obesity)? @ -None Was patient admitted / discharged? Hospital course, mention meds given and route, prescriptions, significant lab abnormalities, going to OR and other pertinent info. @ -Discharge. Patient presented to the emergency department for evaluation infection following a root canal. Laboratory studies were obtained.There is mild leukocytosis at 11.2; CMP essentially unremarkable, CRP 3.1. Patient un derwent a CT of the facial bones which showed no underlying abscess with overlying cellulitis. Patient became febrile in the emergency department. Will switch antibiotic coverage. She was given a dose of Tylenol, IV clindamycin, 1 L normal saline while in the emergency department. Prescription was sent to patient's pharmacy for p.o. clindamycin. Patient will be discharged home. Strict return precautions were discussed and advised close follow-up. She is understanding and agreeable with this plan. Patient stable at time of discharge. Case discussed with Dr. Moss. Undiagnosed new problem with uncertain prognosis? @ -No Drug Therapy requiring intensive monitoring for toxicity (Heparin, Nitro, Insulin, Cardizem)? @ -No Were any procedures done? @ -No Diagnosis/symptom? @ -Dental infection Acute, or Chronic, or Acute on Chronic? @ -Acute Uncomplicated (without systemic symptoms) or Complicated (systemic symptoms)? @ -Complicated Side effects of treatment? @ -No Exacerbation, Progression, or Severe Exacerbation? @ -No Poses a threat to life or bodily function? How? (Chest pain, [place], [place], pneumonia, PE, COPD, DKA, ARF, appy, cholecystitis, CVA, Diverticulitis, Homicidal, Suicidal, threat to staff... and all critical care pts) @ -No (Hailey Constantino) - Lab Data Lab Results 01/31/24 02/01/24 Range/Units 23:16 01:54 WBC 11.2 H (3.8-10.6) k/uL RBC 4.86 (3.80-5.40) m/uL Hgb 14.9 (11.4-16.0) gm/dL Hct 44.7 (34.0-46.0) % MCV 92.1 (80.0-100.0) fL MCH 30.7 (25.0-35.0) pg MCHC 33.3 (31.0-37.0) g/dL RDW 12.7 (11.5-15.5) % Plt Count 285 (150-450) k/uL MPV 8.0 Neutrophils % 80 % Lymphocytes % 11 % Monocytes % 5 % Eosinophils % 2 % Basophils % 1 % Neutrophils # 9.0 H (1.3-7.7) k/uL Lymphocytes # 1.2 (1.0-4.8) k/uL Monocytes # 0.6 (0-1.0) k/uL Eosinophils # 0.2 (0-0.7) k/uL Basophils # 0.1 (0-0.2) k/uL Sodium 137 (137-145) mmol/L Potassium 4.2 (3.5-5.1) mmol/L Chloride 106 (98-107) mmol/L Carbon Dioxide 21 L (22-30) mmol/L Anion Gap 10 mmol/L BUN 11 (7-17) mg/dL Creatinine 0.66 (0.52-1.04) mg/dL Est GFR (CKD-EPI)AfAm >90 (>60 ml/min/1.73 sqM) Est GFR (CKD-EPI)NonAf >90 (>60 ml/min/1.73 sqM) Glucose 98 (74-99) mg/dL Calcium 9.3 (8.4-10.2) mg/dL Total Bilirubin 0.8 (0.2-1.3) mg/dL AST 20 (14-36) U/L ALT 11 (4-34) U/L Alkaline Phosphatase 62 (38-126) U/L C-Reactive Protein 3.1 H (<1.0) mg/dL Total Protein 7.5 (6.3-8.2) g/dL Albumin 4.6 (3.5-5.0) g/dL Disposition <Jackie Varela - Last Filed: 01/31/24 22:39> Is patient prescribed a controlled substance at d/c from ED?: No <Hailey Constantino - Last Filed: 02/03/24 16:55> Clinical Impression: Dental infection, Cellulitis Disposition: HOME SELF-CARE Condition: Stable Instructions (If sedation given, give patient instructions): Dental Abscess (ED) Additional Instructions: Please slate picker new antibiotics and take to completion. Follow up with your dentist. Return to the emergency department for reevaluation if no improvement in 24-48 hours or if new or worsening symptoms develop. Prescriptions: clindamycin HCL 300 mg PO QID #40 cap Referrals: Eben Carlin DO [Primary Care Provider] - 1-2 days
[2024-01-31 23:27] LABS: Basophils # (A) 0.1 k/uL (0-0.2); Basophils % (A) 1 %; Eosinophils # (A) 0.2 k/uL (0-0.7); Eosinophils % (A) 2 %; HCT 44.7 % (34.0-46.0); HGB 14.9 gm/dL (11.4-16.0); Lymphocytes # (A) 1.2 k/uL (1.0-4.8); Lymphocytes % (A) 11 %; MCH 30.7 pg (25.0-35.0); MCHC 33.3 g/dL (31.0-37.0); MCV 92.1 fL (80.0-100.0); Monocytes # (A) 0.6 k/uL (0-1.0); Monocytes % (A) 5 %; Neutrophils % (A) 80 %; Platelet Count 285 k/uL (150-450); RBC 4.86 m/uL (3.80-5.40); RDW 12.7 % (11.5-15.5); WBC 11.2 k/uL (3.8-10.6)
--- NOTE | 2024-02-01 01:36 | CT ---
EXAM: CT Maxillofacial With Intravenous Contrast CLINICAL HISTORY: ITS.REASON CT Reason: dental abscess TECHNIQUE: Axial computed tomography images of the face with intravenous contrast. CTDI is 18 mGy and DLP is 393.3 mGy-cm. This CT exam was performed using one or more of the following dose reduction techniques: automated exposure control, adjustment of the mA and/or kV according to patient size, and/or use of iterative reconstruction technique. 100 ML Isovue- 300 given IV. There is moderate metal artifact from dentition and bilateral earrings. COMPARISON: No relevant prior studies available. FINDINGS: Bones/joints: Periapical lucency left premolar mandible, tooth #18, compatible with dental caries. No acute fracture. Soft tissues: Mild cellulitis overlying the left mandible. No abscess. Moderate metal artifact limits evaluation. No airway compromise or adenopathy. Orbits: Unremarkable. Sinuses: Clear. No air-fluid levels. IMPRESSION: 1. Dental caries left premolar mandible, tooth #18. 2. Overlying cellulitis, no abscess.
[2024-02-01] MEDS: KETOROLAC 15 MG/ML 1 ML VIAL IVP STA (02:31)
[2024-02-01 02:35] VITALS: RESP 15
[2024-02-01 02:38] LABS: ALT 11 U/L (4-34); AST 20 U/L (14-36); African American GFR (CKD) >90 (>60 ml/min/1.73 sqM); Albumin 4.6 g/dL (3.5-5.0); Alkaline Phosphatase 62 U/L (38-126); Anion Gap 10 mmol/L; Blood Urea Nitrogen 11 mg/dL (7-17); C Reactive Protein 3.1 mg/dL (<1.0); Calcium 9.3 mg/dL (8.4-10.2); Carbon Dioxide 21 mmol/L (22-30); Chloride 106 mmol/L (98-107); Glucose 98 mg/dL (74-99); Non-African American GFR(CKD) >90 (>60 ml/min/1.73 sqM); Potassium 4.2 mmol/L (3.5-5.1); Sodium 137 mmol/L (137-145); Total Bilirubin 0.8 mg/dL (0.2-1.3); Total Protein 7.5 g/dL (6.3-8.2)
[2024-02-01] MEDS: ACETAMINOPHEN TAB 500 MG TAB PO STA (02:47)
[2024-02-01] MEDS: SODIUM CHLORIDE 0.9% 1,000 ML IV ONE (03:56)
[2024-02-01] MEDS: CLINDAMYCIN 600 MG in DEXTROSE 5% IN WATER 50 ML IVPB STA (03:56)
[2024-02-01 05:28] VITALS: BP 93/61; PULSE 72; TEMP 98.2
== END 2024-02-01 05:28 | disposition home or self-care (01) ==
LOC: EC 20:57
DX: K04.7 Periapical abscess without sinus (principal); K12.2 Cellulitis and abscess of mouth; R00.0 Tachycardia, unspecified; D72.829 Elevated white blood cell count, unspecified; Z87.891 Personal history of nicotine dependence
CPT/HCPCS: 99284 ×2; 96365 ×2; 96375 ×2; 96361 ×2; 36415 ×2; 80053; 85025; 86140; 87040; 70487; J1885; Q9967; J0736

== ENCOUNTER → 2024-08-02 | Outpatient (CLI) | payer OTHER ==
--- NOTE | 2024-08-02 13:26 | CT ---
EXAMINATION TYPE: CT abdomen pelvis w con CT DLP: 976.6 mGycm, Automated exposure control for dose reduction was used. DATE OF EXAM: 08/02/2024 12:29 PM COMPARISON: MRI MRCP 03/22/2022, gallbladder ultrasound 03/21/2022, CT abdomen and pelvis 03/14/2022 CLINICAL INDICATION:Female, 33 years old with history of R10.84 ABD PAIN; abd pain TECHNIQUE: Standard CT of the abdomen and pelvis following the administration of 100 cc of Isovue 3 00 IV contrast material and oral contrast. Coronal and sagittal reformats were performed. FINDINGS: LOWER CHEST: Few stable pulmonary nodules dating back to 2021 and considered benign with largest in t he left lower lobe measuring up to 5 mm. ABDOMEN LIVER: Stable enhancing peripheral left upper lobe 2 centimeter lesion likely representing a flash fi lling hemangioma or vascular shunt and likely benign due to stability dating back to 2021. GALLBLADDER AND BILE DUCTS: The gallbladder is surgically absent. No biliary duct dilatation. PANCREAS: Unremarkable. SPLEEN: Unremarkable. ADRENAL GLANDS: Unremarkable. KIDNEYS AND URETERS: No evidence of hydronephrosis or renal calculus. The kidneys enhance symmetrical ly. Contrast is demonstrated within both collecting systems on the delayed phase. PELVIS BLADDER: Unremarkable REPRODUCTIVE: Unremarkable appearance of uterus. Left ovarian fat-containing 2.1 cm lesion consistent with a dermoid. Previously measured 1.6 cm in 2021 exam. ABDOMEN & PELVIS STOMACH AND BOWEL: Stomach and duodenum are unremarkable. Enteric contrast reaches the rectum. No foc al bowel wall thickening or surrounding inflammatory changes. Mild to moderate stools present within the colon. The appendix is within normal limits. No evidence of bowel obstruction. PERITONEUM: No evidence of pneumoperitoneum or free fluid. VASCULATURE: No evidence of aortic aneurysm. MUSCULOSKELETAL: No acute osseous abnormalities LYMPH NODES: No evidence for lymphadenopathy. SOFT TISSUE/ABDOMINAL WALL: Tiny fat filled umbilical hernia. IMPRESSION: 1. No acute abdominal/pelvic process. 2. Slight increase in size of left ovarian dermoid from 2021 exam. 3. Postcholecystectomy changes. [facility], , 08/02/2024 1:24 PM
== END | disposition home or self-care (01) ==
LOC: RADCTMAIN 10:12
PROVIDERS: ATTEND Student in an Organized Health Care Education/Training Program
DX: K42.9 Umbilical hernia without obstruction or gangrene (principal); Z98.890 Other specified postprocedural states
CPT/HCPCS: 74177; Q9967

== ENCOUNTER → 2024-08-06 | Outpatient (CLI) | payer OTHER ==
--- NOTE | 2024-08-06 16:18 | US ---
EXAMINATION TYPE: US thyroid st tissue head/neck DATE OF EXAM: 08/06/2024 COMPARISON: NONE CLINICAL INDICATION: Female, 33 years old with history of E04.0 NONTOXIC DIFFUSE GOITER; Right neck e nlargement TECHNIQUE: Grayscale and color Doppler imaging of the thyroid gland. FINDINGS: GLAND SIZE: Right Lobe: 5.0 x 1.6 x 1.5 cm Overall Parenchyma: homogeneous Left Lobe: 3.9 x 1.6 x 1.2 cm Overall Parenchyma: homogeneous Isthmus Thickness: 0.3 cm NODULES RIGHT: # of nodules measured on right: 0 LEFT: # of nodules measured on left: 0 ISTHMUS: # of nodules measured in the isthmus: 0 Bilateral neck scanned, no evidence of lymphadenopathy. Right neck scanned with no masses or lesions identified. IMPRESSION: No evidence for thyroid nodule. No mass identified. [facility], , 08/06/2024 4:15 PM
== END | disposition home or self-care (01) ==
LOC: RADUSWWP 15:19
PROVIDERS: ATTEND Student in an Organized Health Care Education/Training Program
DX: E04.0 Nontoxic diffuse goiter (principal)
CPT/HCPCS: 76536

== ENCOUNTER 2025-03-17 06:37 | Day surgery (SDC) | payer OTHER ==
[2025-03-17] MEDS: IV FLUID CONTINUATION 1,000 ML IV ONE (07:00)
[2025-03-17] MEDS: LACTATED RINGERS 1,000 ML IV SCH (07:21)
[2025-03-17 07:25] VITALS: TEMP 98
[2025-03-17] MEDS ORDERED: PROPOFOL 10 MG/ML 20 ML VIAL IV ONE (07:36)
--- NOTE | 2025-03-17 07:55 | P.GSHP ---
History of Present Illness H&P Date: 03/17/25 Chief Complaint: Epigastric pain This a 34-year-old female whose had complaints epigastric pain. Patient presents today for EGD. Past Medical History Past Medical History: GERD/Reflux Additional Past Medical History / Comment(s): abdominal pain History of Any Multi-Drug Resistant Organisms: MRSA Date of last positivie culture/infection: 2009 MDRO Source:: scar Past Surgical History: Section, Cholecystectomy, Tubal Ligation Additional Past Surgical History / Comment(s): left fallopian tube removed 2009, c section x3 Past Anesthesia/Blood Transfusion Reactions: No Reported Reaction Smoking Status: Former smoker Medications and Allergies Home Medications Medication Instructions Recorded Confirmed Type No Known Home Medications 03/11/25 03/11/25 History Allergies Allergy/AdvReac Type Severity Reaction Status Date / Time No Known Allergies Allergy Verified 03/17/25 07:09 Surgical - Exam Vital Signs Temp Pulse Resp BP Pulse Ox 98.0 F 84 14 122/78 100 03/17/25 07:00 03/17/25 07:00 03/17/25 07:00 03/17/25 07:00 03/17/25 07:00 - General well developed, well nourished, no distress - Eyes PERRL - ENT normal pinna - Neck no masses - Respiratory normal expansion - Cardiovascular Rhythm: regular - Abdomen Abdomen: soft, non tender Assessment and Plan Assessment: Epigastric pain. Will perform EGD.
--- NOTE | 2025-03-17 07:58 | P.OP ---
Date of Procedure: 03/17/25 Preoperative Diagnosis: Epigastric pain Postoperative Diagnosis: Gastritis Procedure(s) Performed: EGD Anesthesia: MAC Surgeon: Sergio Wakefield Pathology: other (Antrum) Condition: stable Disposition: PACU Description of Procedure: The patient was placed on the endoscopy table in the lateral position. He received IV sedation. The Gastroflux oropharynx passed in the esophagus to the stomach. Scope was placed through the pylorus. The 1st and 2nd portion of the duodenum appeared normal. Scope was Ruback the antrum this appeared mildly Flaim. A biopsy was performed. The scope was then retroflexed and remainder of the stomach are normal. The GE junction was at 40 cm. There was no significant hiatal hernia. The distal esophagus appeared normal. The proximal esophagus was normal. Withdrawal the patient.
[2025-03-17 07:59] VITALS: RESP 16
[2025-03-17 08:39] VITALS: BP 104/76; PULSE 68
== END 2025-03-17 09:04 | disposition home or self-care (01) ==
LOC: ORWHC2ENDO 06:37
PROVIDERS: ATTEND Surgery
DX: K29.50 Unspecified chronic gastritis without bleeding (principal); K21.9 Gastro-esophageal reflux disease without esophagitis; Z86.14 Personal history of Methicillin resistant Staphylococcus aureus infection; Z87.891 Personal history of nicotine dependence
CPT/HCPCS: 81025; 88305; 43239; J2704